=== PATIENT | male | born 1955 | race Caucasian/White ===

== ENCOUNTER → 2017-03-29 | Outpatient (CLI) | payer BC ==
--- NOTE | 2017-03-29 15:19 | KCIC ---
CT chest without contrast History: Shortness of breath. COPD. Cough. 45 year smoking history. Prior chest procedure.. Technique: No intravenous contrast per request. Multiplanar reformatted images were obtained. Comparison: Images are available from May 27, 2009 Exposure: One or more of the following individualized dose reduction techniques were utilized for this examination: 1. Automated exposure control 2. Adjustment of the mA and/or kV according to patient size 3. Use of iterative reconstruction technique. Findings: Vascular structures: Limited exam without contrast.No evidence of thoracic aortic aneurysm. Lymph nodes:No significant enlargement Thyroid gland:Visualized aspect is unremarkable. Heart: Mild coronary artery calcifications. Pleural spaces: No significant effusion Lungs: Linear opacities are identified in the left upper lobe. There is also some tissue thickening in the left upper hilum and mediastinal area where there is some surgical material. These findings appear chronic and are likely due to chronic scarring. There is a small nodular opacity in the right lung base laterally, measuring 7 mm diameter. This could represent a small area of scarring, and the was a prior chest tube is very on the prior study. Small 5 mm nodule at the left lung apex posteriorly is unchanged, series 2, image 13. Small 5 mm right upper lobe pulmonary nodule, axial image 16, appears stable. Faint nodular opacity measuring 4 mm in the right upper lobe, image 26, not definitely seen previously. There are emphysematous changes. Trachea and central airways: Patent Bones: No acute fracture or aggressive bone destruction. Old right rib fracture deformity is identified, not seen previously. Upper abdomen: Slices obtained through the upper most abdomen are limited by the noncontrast technique. No obvious acute findings. Impression: 1. Coarse linear markings are identified in left upper lobe, most compatible with chronic scarring. 2. Small 7 mm pulmonary nodule right lateral lung base, and small 4 mm right upper lobe pulmonary nodule, not definitely seen on the prior studies. Consider follow-up chest CT in 6 months, as per Fleischner Society criteria. Electronically signed by: Abe Jaramillo MD (03/29/2017 3:16 PM) [facility]
== END | disposition home or self-care (01) ==
LOC: KCIC CT 13:45
PROVIDERS: ATTEND Physician Assistant Medical
DX: J44.9 Chronic obstructive pulmonary disease, unspecified (principal); R91.1 Solitary pulmonary nodule; Z87.891 Personal history of nicotine dependence
CPT/HCPCS: 71250

== ENCOUNTER → 2017-04-17 | Outpatient (CLI) | payer BC ==
--- NOTE | 2017-04-17 14:32 | CARD ---
MR#: [id number] Date of Study: 04/17/2017 Ordering Physician: IVORY SCHAEFER, Referring Physician: IVORY SCHAEFER, Wilda: Mitzi Osun[place] [facility] APPROVED REPORT EXAM: Two-dimensional and M-mode echocardiogram with Doppler and color Doppler. Other Information Quality : Poor Technically limited study due to body habitus and smoking. INDICATION Dyspnea DUDLEY 2D DIMENSIONS IVSd0.9 (0.7-1.1cm)Aortic Root(2D)3.0 (2.0-3.7cm) LVDd5.7 (3.9-5.9cm)LVOT Diameter1.9 (1.8-2.4cm) PWd0.6 (0.7-1.1cm)LVDs3.5 (2.5-4.0cm) FS (%) 30.0 %SV107.0 ml LVEF(%)60.0 (>50%) Aortic Valve AoV Peak Farshad.119.8cm/Jaime Peak GR.5.7mmHg LVOT Peak Farshad.79.8cm/sAVA (VMAX)1.89cm2 Mitral Valve MV E Xjpyrraw68.6cm/sMV A Jrurxnmx07.7cm/s E/A Ratio1.1 TDI E/Lateral E'11.9E/Medial E'9.5 Pulmonary Valve PV Peak Erfarnws13.6cm/sPV Peak Grad.4mmHg LEFT VENTRICLE The left ventricle is normal size. There is normal left ventricular wall thickness. The left ventricu lar systolic function is normal and the ejection fraction is within normal range. The Ejection Fracti on is 55-60%. There is normal LV segmental wall motion. RIGHT VENTRICLE The right ventricle is normal size. There is normal right ventricular wall thickness. The right ventr icular systolic function is normal. ATRIA The left atrium size is normal. The right atrium size is normal. The interatrial septum is intact wit h no evidence for an atrial septal defect or patent foramen ovale as noted on 2-D or Doppler imaging. AORTIC VALVE The aortic valve is normal in structure and function. Doppler and Color Flow revealed no significant aortic regurgitation. There is no significant aortic valvular stenosis. MITRAL VALVE The mitral valve is normal in structure and function. There is no evidence of mitral valve prolapse. There is no mitral valve stenosis. Doppler and Color-flow revealed trace mitral regurgitation. TRICUSPID VALVE The tricuspid valve is normal in structure and function. Doppler and Color Flow revealed trace tricus pid regurgitation. PULMONIC VALVE The pulmonary valve is normal in structure and function. Doppler and Color Flow revealed trace pulmon ic valvular regurgitation. GREAT VESSELS The aortic root is normal in size. The ascending aorta is normal in size. The IVC is normal in size a nd collapses >50% with inspiration. PERICARDIAL EFFUSION There is no pleural effusion. There is no evidence of significant pericardial effusion. Critical Notification Critical Value: No <Conclusion> The left ventricle is normal size. The left ventricular systolic function is normal and the ejection fraction is within normal range. The Ejection Fraction is 55-60%. There is no significant aortic valvular stenosis. Doppler and Color Flow revealed no significant aortic regurgitation. Doppler and Color-flow revealed trace mitral regurgitation. Doppler and Color Flow revealed trace tricuspid regurgitation. Signed by : Ken Weems MD Electronically Approved : 04/17/2017 14:32:00
== END | disposition home or self-care (01) ==
LOC: ECHO 10:55
PROVIDERS: ATTEND Physician Assistant Medical
DX: R06.02 Shortness of breath (principal); R06.09 Other forms of dyspnea; F17.200 Nicotine dependence, unspecified, uncomplicated
CPT/HCPCS: 93306

== ENCOUNTER → 2017-09-26 | Outpatient (CLI) | payer BC ==
[2017-09-26] MEDS: REGADENOSON 0.4 MG/5 ML DISP.SYRIN. IV (11:39)
== END | disposition home or self-care (01) ==
LOC: NM 09:41
DX: R06.09 Other forms of dyspnea (principal); I10 Essential (primary) hypertension; E11.9 Type 2 diabetes mellitus without complications; E78.00 Pure hypercholesterolemia, unspecified; J44.9 Chronic obstructive pulmonary disease, unspecified; Z87.891 Personal history of nicotine dependence
CPT/HCPCS: 78452; 93017; 96374; 96375; 96376; A9500; J2785

== ENCOUNTER → 2020-07-20 | Outpatient (CLI) | payer BC ==
[~2020-07-20] MED LIST: ALBU2.5V8 INH; AMLO-186 PO; ASPI81TA50 PO; ATOR20TA58 PO; BUDE10.2 IH; DOXA2TAB2 PO; METF500T16 PO; TAMS0.4C97 PO; TIOT18CA IH; TRIA1CAP3 PO; TRIA1TAB3 PO
== END ==
LOC: LAB 10:34
PROVIDERS: ATTEND Internal Medicine Cardiovascular Disease
DX: Z01.812 Encounter for preprocedural laboratory examination (principal); Z20.822 Contact with and (suspected) exposure to COVID-19
CPT/HCPCS: U0003

== ENCOUNTER 2020-07-22 06:52 | Outpatient (CLI) | payer BC ==
[~2020-07-22] VITALS: Ht 182.9 cm; Wt 113.4 kg
[2020-07-22] VITALS (10 sets, daily range): BP systolic 130–167; BP diastolic 75–86
[~2020-07-22 06:52] MED LIST changes: -BUDE10.2 IH; -TAMS0.4C97 PO
[2020-07-22] MEDS ORDERED: TAMS0.4C97 PO (07:24)
[2020-07-22] MEDS ORDERED: BUDE10.2 IH (07:24)
[2020-07-22 07:46] LABS: HEMATOCRIT 46.2 % (39.0-53.0); HEMOGLOBIN 15.7 g/dL (13.0-17.5); RED BLOOD COUNT 5.16 x10^6/uL (4.30-5.70); RED CELL DISTRIBUTION WIDTH 13.4 % (11.5-14.5); WHITE BLOOD COUNT 6.9 x10^3/uL (4.0-11.0)
[2020-07-22] MEDS ORDERED: LIDOCAINE 1% Multi-Dose 20 ML VIAL. ONE (07:47)
[2020-07-22] MEDS ORDERED: IODIXANOL 320 MG/ML 100 ML VIAL. ONE (07:47)
[2020-07-22] MEDS ORDERED: fentaNYL PF VIAL 100 MCG/2 ML VIAL ONE (07:50)
[2020-07-22] MEDS ORDERED: MIDAZOLAM HCL/PF 2 MG/2 ML VIAL. ONE ×2 (07:50→08:41)
[2020-07-22 07:56] LABS: PROTHROMBIN TIME PATIENT 11.8 SEC (11.7-14.0)
[2020-07-22] MEDS ORDERED: fentaNYL PF VIAL 100 MCG/2 ML VIAL IV ONE (08:00)
[2020-07-22] MEDS ORDERED: MIDAZOLAM HCL/PF 2 MG/2 ML VIAL. IV ONE (08:00)
[2020-07-22] MEDS ORDERED: LIDOCAINE 1% Multi-Dose 20 ML VIAL. INJ ONE (08:00)
[2020-07-22] MEDS ORDERED: IODIXANOL 320 MG/ML 100 ML VIAL. IART ONE (08:00)
[2020-07-22 08:03] LABS: CALCIUM 8.9 mg/dL (8.5-10.1); CREATININE 0.9 mg/dL (0.7-1.3); GFR 84.7; POTASSIUM 3.9 mmol/L (3.5-5.1)
--- NOTE | 2020-07-22 08:35 | PDOC ---
MODERATE SEDATION ASSESSMENT RISKS/ALTERNATIVES Risks/Alternatives Risks and alternatives of this type of sedation and procedure discussed with: RISK/ALTERNATIVES: Patient H & P ON CHART H & P H & P on chart and reviewed for co-morbid conditions and appropriate labs. H&P ON CHART: Yes STATUS PREG STATUS ASSESSED: N/A MEDS/ALLERGIES REVIEWED Meds/Allergies Reviewed Medications and Allergies including time and route of recently administered narcotics and sedatives. MEDS/ALLERGIES REVIEWED: Yes ASA RATING ASA RATING: II AIRWAY ASSESSMENT Airway Assessment Airway patency, oral function limitations, presence of caps, crowns, dentures, partials, and ability to extend neck assessed. AIRWAY ASSESSMENT: Yes MALLAMPATI SCORE MALLAMPATI SCORE: II PRE-SEDATION ASSESSMENT PRE-SEDATION ASSESSMENT: Yes YSAH WALL MD Jul 22, 2020 08:35
[2020-07-22] MEDS ORDERED: IV 1/2 NORMAL SALINE 1,000 ML IV SCH (09:45)
--- NOTE | 2020-07-22 09:57 | CARD ---
MR#: [id number] Date of Study: 07/22/2020 Ordering Physician: YASH MILLS, Referring Physician: YASH MILLS, Tech: RT Vernon(R)() APPROVED REPORT Technologist: RT Vernon(R)() Nurse: Bonnie Lucia RN Procedure(s) performed: Right and left heart catheterization, selective coronary angiography and left ventriculography FL TIME: 6.6 MINS DOSE: 57.5 GYCM2 CONTRAST: 115 ML MODERATE SEDATION: 40 MINS INDICATION The indication(s) include : Chest pain and dyspnea on exertion concerning for unstable angina. CS Clinical Frailty Scale [facility] Clinical Frailty Scale: Managing Well Heart Failure Heart Failure: No CASE TECHNIQUE IV conscious sedation was used throughout procedure with appropriate monitoring and was performed in the presence of a registered nurse who was an independent trained observer other than the physician p erforming the procedure. During this case, Fluoroscopy and low osmolar contrast were used for imaging . Specimen(s) Removed: No Estimated Blood loss: 20 cc's. PROCEDURE NARRATIVE After explaining the risk, benefits and alternative options, informed consent was obtained for patien t. Patient was brought to the cardiac Metal Casket [employer]er and his right groin was prepped and draped in the usu al fashion. 20 cc of 2% lidocaine was infiltrated into the skin and subcutaneous tissues for local a nesthesia. Arterial and venous accesses were obtained in the right common femoral artery and vein re spectively and 6 and 8 Belgian sheaths inserted. A 7.5 Belgian Speedwell-Mendez catheter was then advanced un terrence fluoroscopic guidance and intracardiac pressures, oxygen saturations and cardiac output by Michelle m ethod measured. Subsequently, 6 Belgian JL4 and 6 Belgian JR4 catheters were used to perform selective angiography of the left and right coronary arteries. 6 Belgian pigtail catheter was used to perform left ventriculography. Patient tolerated the procedure well. Hemostasis was achieved using Mynx gudelia sure device and manual compression. There were no immediate complications. FINDINGS A. RIGHT HEART CATHETERIZATION 1. Intracardiac pressures: Mean right atrial pressure 13 mmHg, right ventricular pressure 42/7 mmHg, pulmonary artery pressure 47/22 mmHg, mean pulmonary artery pressure 33 mmHg and mean pulmonary capi llary wedge pressure 19 mmHg. This is consistent with mild pulmonary hypertension. 2. Oxygen saturations: Right atrium 72.9%, pulmonary artery 73.6%, femoral arterial sheath 97.9%. N o evidence of intracardiac shunt. 3. Cardiac output by Michelle method 5.4 L/min. B. LEFT HEART CATHETERIZATION 1. Hemodynamics: Elevated left ventricular end-diastolic pressure 23 mmHg consistent with mild acute on chronic diastolic heart failure. No pullback gradient across the aortic valve. 2. Left ventriculography: Normal left ventricle systolic function with ejection fraction estimated a t 55%. No significant mitral regurgitation seen. 3. Coronary angiography: a. The left main coronary artery arose from the left sinus of Valsalva, gave rise to the left anteri or descending and left circumflex arteries and did not show any significant stenosis. b. The left anterior descending artery is a small to medium caliber vessel in the mid to distal segm ents and did not show any significant stenosis. c. The left circumflex artery was a large caliber vessel that did not show any significant stenosis. d. The right coronary artery was a large and dominant vessel that arose from the right sinus of Vals cadena and did not show any significant stenosis. Conclusion 1. No significant coronary disease 2. Normal left ventricle systolic function with ejection fraction estimated at 55% 3. Mild pulmonary hypertension 4. Mild acute on chronic diastolic heart failure 5. No evidence of intracardiac shunt Recommendations Medical Therapy Signed by : Yash Mills, Electronically Approved : 07/22/2020 09:56:46
--- NOTE | 2020-07-22 12:07 | NUR ---
Discharge Note: [facility] Discharge instructions and discharge home medications reviewed with Patient and son; and a copy given. All questions have been answered and understanding verbalized. The following instructions and handouts were given: Moderate sedation, Groin site care, and smoking cessation. Discontinued lines and drains: Left hand IV dc'd and tip intact. Patient discharged to home with son via personal vehicle.
== END 2020-07-22 12:07 | disposition home or self-care (01) ==
LOC: CCL 06:52
PROVIDERS: ATTEND Internal Medicine Cardiovascular Disease
DX: I20.0 Unstable angina (principal); R06.09 Other forms of dyspnea; I11.0 Hypertensive heart disease with heart failure; I50.33 Acute on chronic diastolic (congestive) heart failure; J44.9 Chronic obstructive pulmonary disease, unspecified; E78.00 Pure hypercholesterolemia, unspecified; E11.9 Type 2 diabetes mellitus without complications; N40.0 Benign prostatic hyperplasia without lower urinary tract symptoms; F17.210 Nicotine dependence, cigarettes, uncomplicated; Z79.82 Long term (current) use of aspirin; Z79.84 Long term (current) use of oral hypoglycemic drugs; Z79.899 Other long term (current) drug therapy; Z98.890 Other specified postprocedural states
CPT/HCPCS: 36415; 80048; 85027; 85610; 93460; 99152; 99153; C1760; C1769; C1773; C1892; J1644; J2250; J3010; J3490; Q9967; G0269

== ENCOUNTER → 2020-08-02 | Outpatient (CLI) | payer BC ==
[2020-07-22 11:30] VITALS: BP 141/77
[~2020-08-02] MED LIST changes: +BUDE10.2 IH; +PERFLUTREN PROTEIN-A MICROSPHR 0.22 MG/ML 3 ML VIAL. IV ONE; +TAMS0.4C97 PO
[2020-08-02] MEDS: PERFLUTREN PROTEIN-A MICROSPHR 0.22 MG/ML 3 ML VIAL. IV ONE (15:09)
--- NOTE | 2020-08-02 15:59 | CARD ---
MR#: [id number] Date of Study: 08/02/2020 Ordering Physician: YASH WALL, Referring Physician: YASH WALL Tech: Taylor Awad [facility] APPROVED REPORT EXAM: Two-dimensional and M-mode echocardiogram with Doppler and color Doppler. Other Information Quality : Technically LimitedHR: 105bpm Rhythm : NSRTechnically limited study due to body habitus and smoking. INDICATION COPD Palpitations Chest Pain Echo Enhancing Agent Indication: Endocardial border delineation Agent/Amount Used: Optison 3mL RISK FACTORS Hypertension Obesity Smoking 2D DIMENSIONS Left Atrium(2D)3.1 (1.6-4.0cm)IVSd1.1 (0.7-1.1cm) Aortic Root(2D)3.2 (2.0-3.7cm)LVDd4.8 (3.9-5.9cm) LVOT Diameter2.4 (1.8-2.4cm)PWd1.1 (0.7-1.1cm) LVDs2.3 (2.5-4.0cm)FS (%) 51.6 % SV86.8 mlLVEF(%)82.7 (>50%) Aortic Valve AoV Peak Farshad.126.5cm/sAoV VTI21.8cm AO Peak GR.6.4mmHgLVOT Peak Farshad.100.9cm/s AO Mean GR.3mmHgAVA (VMAX)3.46cm2 Mitral Valve MV E Ikmiukpm64.2cm/sMV DECEL [id number] MV A Vybhzsxg54.3cm/sE/A Ratio0.8 LEFT VENTRICLE The left ventricle is normal size. There is borderline concentric left ventricular hypertrophy. The l eft ventricular systolic function is normal. Estimated ejection fraction 60-65%. There is normal LV s egmental wall motion. Transmitral Doppler flow pattern is Grade I-abnormal relaxation pattern. RIGHT VENTRICLE The right ventricle is normal size. There is normal right ventricular wall thickness. The right ventr icular systolic function is normal. ATRIA The left atrium size is normal. The right atrium size is normal. The interatrial septum is intact wit h no evidence for an atrial septal defect or patent foramen ovale as noted on 2-D or Doppler imaging. AORTIC VALVE The aortic valve is normal in structure and function. Doppler and Color Flow revealed no significant aortic regurgitation. There is no significant aortic valvular stenosis. MITRAL VALVE The mitral valve is normal in structure and function. There is no evidence of mitral valve prolapse. There is no mitral valve stenosis. Doppler and Color-flow revealed trace mitral regurgitation. TRICUSPID VALVE The tricuspid valve is normal in structure and function. Doppler and Color Flow revealed no tricuspid valve regurgitation noted. There is no tricuspid valve stenosis. PULMONIC VALVE The pulmonary valve is normal in structure and function. Doppler and Color Flow revealed no pulmonic valvular regurgitation. GREAT VESSELS The aortic root is normal in size. The ascending aorta is normal in size. The IVC is normal in size a nd collapses >50% with inspiration. PERICARDIAL EFFUSION There is no evidence of significant pericardial effusion. Critical Notification Critical Value: No <Conclusion> The left ventricular systolic function is normal. Estimated ejection fraction 60-65%. There is normal LV segmental wall motion. Transmitral Doppler flow pattern is Grade I-abnormal relaxation pattern. There is no evidence of significant pericardial effusion. Signed by : Yash Wall, Electronically Approved : 08/02/2020 15:58:33
== END ==
LOC: ECHO 12:56
PROVIDERS: ATTEND Internal Medicine Cardiovascular Disease
DX: I51.7 Cardiomegaly (principal); I20.0 Unstable angina
CPT/HCPCS: 93306; Q9956